=== PATIENT | male | born 1945 | race Caucasian/White ===

== ENCOUNTER 2016-03-31 08:57 | Day surgery (SDC) | payer MEDICARE, BC ==
[~2016-03-31 08:57] MED LIST: Dexamethasone IV* 4 MG/ML 1 ML (4 MG) IV SLOW PU ONE; Famotidine IV* 10 MG/ML 2 ML (20 mg) IV ONE
[2016-03-31] MEDS ORDERED: Bupivacaine 0.5% SDV PF* 30 ML VIAL ONE (09:06)
[2016-03-31] MEDS ORDERED: ceFAZolin 2 GM PREMIX (*) 2 GM/50 ML BAG IVPB ONE (09:09)
[2016-03-31] MEDS ORDERED: Famotidine IV* 10 MG/ML 2 ML (20 mg) ONE (09:09)
[2016-03-31] MEDS ORDERED: Dexamethasone IV* 4 MG/ML 1 ML (4 MG) ONE (09:10)
[2016-03-31] MEDS: Buffered Lidocaine 1% SYR 3ML* 3 ML/SYR SYRINGE INTRADERM ONE ×2 (09:16→09:29)
[2016-03-31] MEDS ORDERED: fentaNYL* 50 MCG/ML 2 ML VIAL (100 MCG VIAL) ONE (09:57)
[2016-03-31] MEDS ORDERED: Midazolam* 1 MG/ML 2 ML VIAL (2 MG) ONE (09:57)
[2016-03-31] MEDS ORDERED: Lidocaine 1% INJ* 10 MG/ML 30 ML SDV ONE (10:12)
[2016-03-31] MEDS ORDERED: Propofol* 10 MG/ML 20 ML BTL IV PUSH ONE (10:44)
[2016-03-31] MEDS ORDERED: Ondansetron INJ* 2 MG/ML VIAL IV PRN (11:00)
[2016-03-31] MEDS ORDERED: fentaNYL* 50 MCG/ML 2 ML VIAL (100 MCG VIAL) IV PRN (11:00)
[2016-03-31 11:44] VITALS: BP 107/76
--- NOTE | 2016-04-01 00:47 | OP ---
DATE OF OPERATION: 03/31/16 - [facility] DATE OF : 47 SURGEON: Myriam Ann MD COURT MESSENGER: LORENE Gross ANESTHESIOLOGIST: Paco Moon MD ANESTHESIA: Local MAC. 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 OPERATIVE PROCEDURE: Left carpal tunnel release and left ulnar nerve decompression at the elbow. INDICATIONS: Kaleigh is a 70-year-old man who has numbness in his left hand, ulnar nerve was compressed at the elbow and median nerve of the wrist as identified by nerve conduction study. He presents for decompression of both nerves. ESTIMATED BLOOD LOSS: Zero. TOURNIQUET TIME: About 30 minutes. DESCRIPTION OF PROCEDURE: The patient was brought to the operating room and was given a sedation anesthetic and a local infiltration of total of 20 cc of 1 % plain lidocaine half in the palm and half at the medial aspect of the elbow. Skin of his left upper extremity was prepped and draped in the usual sterile fashion. The hand and forearm were exsanguinated and the tourniquet elevated to 250 mmHg. A longitudinal incision was made in the palm in line with the ring finger. We dissected through the subcutaneous tissue down to the transverse carpal ligament. The ligament was divided sharply with a knife and then more proximally with the scissors. The nerve was dissected free from the surrounding tissue, and there was an area of moderate compression at the mid portion of the ligament. The wound was irrigated and the skin edge was reapproximated with 4-0 nylon suture. Next, a curvilinear incision was made centered between the medial epicondyle and the tip of the olecranon process. We dissected sharply and bluntly down to the ulnar nerve proximal to the elbow joint. This carefully dissected out proximally up into the arm. The main compression was across the cubital tunnel where Arias's ligament was very, very tight. This was divided and then the superficial and deep fascia of the FCU muscle were both divided completely releasing the ulnar nerve. The wound was copiously irrigated with saline. Hemostasis was achieved. The medial intermuscular septum was divided and then the subcutaneous tissue was closed with 2-0 Polysorb and the skin with skin hina. The wounds were dressed with Xeroform, 4x4, Webril, and an Luis Felipe wrap. The patient tolerated the procedure well and was brought to the recovery room in good condition. [id number]/[facility] #: [id number] TIARA
== END 2016-03-31 12:20 | disposition home or self-care (01) ==
LOC: OREAST 08:57
PROVIDERS: ATTEND Orthopaedic Surgery
DX: G56.02 Carpal tunnel syndrome, left upper limb (principal); G56.22 Lesion of ulnar nerve, left upper limb
CPT/HCPCS: J0690; J1100; J2250; J2704; J3010

== ENCOUNTER 2019-10-17 11:30 | Inpatient (IN) ==
[~2019-10-17 11:30] MED LIST changes: +Buffered Lidocaine 1% SYRIN 1 ml INTRADERM ONE; +Dexamethasone IV 4 MG/ML VIAL 1 ml VIAL IV SLOW PU ONE; -Dexamethasone IV* 4 MG/ML 1 ML (4 MG) IV SLOW PU ONE; +Famotidine IV 10 MG/ML 2 ml VIAL (20 mg) IV ONE; -Famotidine IV* 10 MG/ML 2 ML (20 mg) IV ONE; +Lactated Ringers 1000 ml BAG 1,000 ML IV SCH
[2019-10-17] MEDS ORDERED: Famotidine IV 10 MG/ML 2 ml VIAL (20 mg) ONE (13:44)
[2019-10-17] MEDS ORDERED: Dexamethasone IV 4 MG/ML VIAL 1 ml VIAL ONE (13:44)
[2019-10-17] MEDS ORDERED: Clindamycin 900 MG/D5W BAG 900 MG/50 ML BAG IVPB ONE (13:44)
[2019-10-17] MEDS ORDERED: fentaNYL 100 mcg/2 ml 50 MCG/ML VIAL ONE (16:20)
[2019-10-17] MEDS ORDERED: Midazolam 2 mg/2 ml VIAL 1 mg/ml 2 ml VIAL (2 mg) ONE (16:20)
[2019-10-17] MEDS ORDERED: ROPIVACAINE 5 MG/ML 30 ML BTL (0.5%) ONE ×2 (16:27→16:54)
[2019-10-17] MEDS ORDERED: Bupivacaine 0.5% SDV PF 30ML VIAL ONE (16:37)
[2019-10-17] MEDS ORDERED: EPHEDrine (Pressors) 50 MG/ML VIAL ONE (18:29)
[2019-10-17] MEDS ORDERED: Propofol 10 MG/ML 20 ML BTL ONE (18:59)
[2019-10-17] MEDS ORDERED: Lactulose 30 ml UDC PO PRN (19:00)
[2019-10-17] MEDS ORDERED: diPHENhydraMINE 25 mg TAB PO PRN (19:00)
[2019-10-17] MEDS ORDERED: Magnesium Hydroxide LIQ 30 ML UDC PO PRN (19:00)
[2019-10-17] MEDS ORDERED: Ondansetron 4 mg VIAL 2 MG/ML 2 ml VIAL IV PRN (19:00)
[2019-10-17] MEDS ORDERED: Ondansetron ODT 4 mg TAB 4 MG TAB PO PRN (19:00)
[2019-10-17] MEDS ORDERED: diPHENhydraMINE IV 50 MG/ML 1 ml VIAL (BENADRYL) IV PRN (19:00)
[2019-10-17] MEDS ORDERED: Lidocaine 2% PF 5 ML VIAL ONE (19:01)
[2019-10-17] MEDS ORDERED: Ondansetron 4 mg VIAL 2 MG/ML 2 ml VIAL ONE (19:01)
[2019-10-17] MEDS ORDERED: Morphine 2 MG/ML SYRINGE IV PRN (19:06)
[2019-10-17] MEDS ORDERED: HYDROmorphone 1 MG/1 ML SYRINGE IV PRN (19:18)
[2019-10-17] MEDS ORDERED: Naloxone 0.4 mg VIAL 0.4 mg/ml 1 ml VIAL IV PRN (19:18)
[2019-10-17] MEDS ORDERED: Acetaminophen IV 1 GM/100ML 1,000 MG/100 ML VIAL IVPB ONE (19:18)
[2019-10-17] MEDS ORDERED: Acetaminophen IV 1 GM/100ML 100 ML ONE (19:59)
[2019-10-17] MEDS ORDERED: Lactated Ringers 1000 ml BAG 1,000 ML IV SCH (20:00)
[2019-10-17] MEDS ORDERED: Polyethyl Glycol/Propylene Gly OPHTH.SOLN BOTH EYES PRN (22:03)
[2019-10-17] MEDS: Magnesium Hydroxide LIQ 30 ML UDC PO SCH ×2 (22:11→22:23)
[2019-10-18] MEDS: Clindamycin 600 MG/D5W BAG 600 MG/50 ML BAG IV SCH ×3 (02:06→16:08)
[2019-10-18] MEDS: oxyCODONE/Acetamin 5/325 mg TAB PO PRN ×3 (05:16→16:14)
[2019-10-18 06:22] LABS: Hematocrit 40 % (42-52); Hemoglobin 13.9 g/dL (14.0-18.0); Platelet Count 120 10^3/uL (150-450)
[2019-10-18 06:45] LABS: BUN/Creatinine Ratio 21.6 (8-20); Calcium 9.7 mg/dL (8.6-10.3); EGFR African American 68.5 (>60); EGFR Non-African American 56.6 (>60); Potassium 4.3 mmol/L (3.5-5.0)
[2019-10-18] MEDS: Magnesium Hydroxide LIQ 30 ML UDC PO SCH (07:59)
[2019-10-18] MEDS ORDERED: Vitamin THERAPEUTIC TAB PO SCH (09:00)
[2019-10-18 11:30] VITALS: BP 102/54
[2019-10-18] MEDS ORDERED: Latanoprost 0.005% 2.5 ml BTL BOTH EYES SCH (21:00)
== END 2019-10-18 16:50 | disposition home health service (06) | DRG 470 ==
LOC: AA 13:27 → SSU 21:47
PROVIDERS: ADMIT Orthopaedic Surgery Adult Reconstructive Orthopaedic Surgery; ATTEND Orthopaedic Surgery Adult Reconstructive Orthopaedic Surgery